=== PATIENT | male | born 1970 | race Caucasian/White ===

== ENCOUNTER → 2017-01-09 | Outpatient (CLI) | payer BC ==
[2017-01-09 09:17] LABS: HEMOGLOBIN A1C 7.98 % (4.2-6.0); MEAN BLOOD GLUCOSE (CALC) 179.734 mg/dL
== END ==
LOC: LAB 08:45
PROVIDERS: ATTEND Internal Medicine
DX: E11.9 Type 2 diabetes mellitus without complications (principal); Z79.4 Long term (current) use of insulin; E78.5 Hyperlipidemia, unspecified
CPT/HCPCS: 36415; 82550; 83036

== ENCOUNTER → 2017-04-17 | Outpatient (CLI) | payer BC ==
[2017-04-17 09:08] LABS: HEMOGLOBIN A1C 7.69 % (4.2-6.0)
[2017-04-17 10:03] LABS: BLOOD UREA NITROGEN 17 mg/dL (7-22); EST GLOMERULAR FILTRATION > 60 (>60 ml/min/1.73m(2)); SERUM ALBUMIN 4.3 g/dL (3.5-4.8)
[2017-04-17 10:04] LABS: CREATININE, URINE 85.8 MG/DL (15-500)
[2017-04-17 11:06] LABS: CHOL/HDL RATIO 4.35 RATIO (0-4.0); LDL CHOLESTEROL,CALCULATED 35.6 mg/dL
== END ==
LOC: LAB 08:28
PROVIDERS: ATTEND Internal Medicine
DX: E11.9 Type 2 diabetes mellitus without complications (principal); Z79.4 Long term (current) use of insulin; E78.5 Hyperlipidemia, unspecified; R63.4 Abnormal weight loss; I10 Essential (primary) hypertension; I25.10 Atherosclerotic heart disease of native coronary artery without angina pectoris; F17.200 Nicotine dependence, unspecified, uncomplicated; Z95.1 Presence of aortocoronary bypass graft
CPT/HCPCS: 36415; 80053; 80061; 82043; 82550; 83036